=== PATIENT | female | born 1950 | race Caucasian/White ===

== ENCOUNTER → 2020-08-17 | Outpatient (CLI) | payer MEDICARE, OTHER ==
[2014-04-29 15:04] VITALS: BP 109/74
[~2020-08-17] MED LIST: ASPI325T8 PO; ATOR40TA PO; BUPIVACAINE MPF 0.5% 10 ML VIAL. IJ ONE; GABA-689 PO; GABA300C18 PO; Metoprolol Tartrate PO; OMEG1CAP6 PO; gabapentin; lisinopril
--- NOTE | 2020-08-17 16:43 | RAD ---
Examination: DIGITAL DIAGNOSTIC RT, US GUID NDL PLACE/ASPI/BX History: Post rt breast biopsy,clip placement / Comparison/Correlation: None Findings: Risks, benefits, and alternatives regarding right breast biopsy by ultrasound guidance were discussed with the patient and informed consent was obtained. Cleansing with ChloraPrep at the anticipated site of needle placement was performed. Sterile draping, sterile gel, and sterile probe cover is were utilized. Approximately 5 of 1 percent lidocaine was administered subcutaneously and along the expected course of the needle tracks. Oblique superoinferior approach was utilized. Scalpel incision was made. Introducer was placed. A 12-gauge core biopsy needle was utilized. 3 passes were made into the right suprahilar mass. Specimens placed in formalin there are . Biopsy clip marker was then placed via the introducer into the mass. Mediolateral and CC images of the right breast were then obtained. Biopsy clip marker is present within the 12 o'clock mass. No hematoma. Minimal soft tissue gas corresponding to postprocedure status. Scattered fibroglandular densities are present. Impression: Successful ultrasound-guided core biopsy of right 12:00 breast mass. Specimen sent to lab. Patient tolerated the procedure well without immediate complications. Electronically signed by: Brenton Parisi MD (08/17/2020 4:41 PM) [email or web address]
--- NOTE | 2020-08-18 19:11 | PATHOLOGY ---
[facility] Accession Number: [id number] . 01 Material submitted: . breast - RIGHT BREAST BIOPSY. Modifiers: right . 01 Clinical history: . RIGHT BREAST MASS . 02 Diagnosis: Breast tissue, right breast mass needle biopsy: - INVASIVE DUCTAL CARCINOMA, GRADE 2. SEE COMMENT. LBQ 08/18/2020 1129 Local . 02 Comment: Sections of the right breast mass needle biopsy reveal an invasive mammary carcinoma. The tumor shows evidence of tubule formation. Tumor cells are also focally present in infiltrating cords. The tumor is associated with a centrally dense sclerotic stroma. The tumor cells show moderate nuclear pleomorphism. There are a few mitotic figures present. The invasive carcinoma measures up to 1.3 cm in greatest dimension on the glass slide. There are no tumor associated calcifications. There is no lymphovascular tumor invasion. The case is also examined by Dr. Mott, who concurs with the diagnosis. . Breast prognostic studies will be obtained on block A3, the results of which will be reported separately. (JPM/db; 08/18/2020) . 02 Electronically signed: . Keith Elliott MD, Pathologist NPI- [id number] . 01 Gross description: . The specimen is received in formalin, labeled "Mayelin Cisneros", "right breast biopsy". Received are 3 needle cores of pale white-villalba breast tissue, ranging in length from 1.0 cm to 1.5 cm and are 0.1 cm in diameter. The specimen is entirely submitted in cassettes A1 to A3. Time removed is 1357, time in formalin is 1358, time out of formalin is 2340 all on 08-17.(SNA; 08/17/2020) NICK/LAXMI 08/17/2020 1834 Local . 02 Pathologist provided ICD-10: C50.911 . 02 CPT . 741998 Specimen Comment: Report sent to ,DR DEVLIN / DR AMOR Performed at: [address], [place] [id number] MD Alejandro Mott MD Phone: [phone] Performed at: [address] [id number] MD Keith Elliott MD Phone: [phone]
== END ==
LOC: US 12:22
PROVIDERS: ATTEND Nurse Practitioner Family
DX: N63.10 Unspecified lump in the right breast, unspecified quadrant (principal); C50.911 Malignant neoplasm of unspecified site of right female breast; I10 Essential (primary) hypertension; E78.00 Pure hypercholesterolemia, unspecified; K21.9 Gastro-esophageal reflux disease without esophagitis; F41.9 Anxiety disorder, unspecified; E66.9 Obesity, unspecified; Z87.891 Personal history of nicotine dependence; Z79.82 Long term (current) use of aspirin; Z79.899 Other long term (current) drug therapy; Z98.890 Other specified postprocedural states; Z86.73 Personal history of transient ischemic attack (TIA), and cerebral infarction without residual deficits; Z90.710 Acquired absence of both cervix and uterus; Z88.8 Allergy status to other drugs, medicaments and biological substances
CPT/HCPCS: 19083; 77065; 88305; 88361; C1713; J3490; 19081; 76942

== ENCOUNTER → 2020-09-23 | Outpatient (CLI) | payer MEDICARE ==
[2014-04-29 15:04] VITALS: BP 109/74
[~2020-09-23] MED LIST changes: +ALEN70TA3 PO; -BUPIVACAINE MPF 0.5% 10 ML VIAL. IJ ONE; +METF10007 PO; +OMEP40CA45 PO
== END ==
LOC: LAB 13:08
PROVIDERS: ATTEND Surgery
DX: Z01.812 Encounter for preprocedural laboratory examination (principal); Z20.828 Contact with and (suspected) exposure to other viral communicable diseases
CPT/HCPCS: U0003

== ENCOUNTER 2020-09-27 10:27 | Observation (INO) | payer MEDICARE ==
[2020-09-27] VITALS (8 sets, daily range): BP systolic 118–149; BP diastolic 54–77
[~2020-09-27] VITALS: Ht 157.5 cm; Wt 106.0 kg
[~2020-09-27 10:27] MED LIST changes: +ACETAMINOPHEN 500 MG TABLET PO PRN; -ALEN70TA3 PO; +BUPIVACAINE-EPI 0.25%-1:200000 MPF 30 ML VIAL. INJ ONE; +DEXAMETHASONE SOD PHOS 4 MG/ML VIAL ONE; +HYDROmorphone 2 MG/ML VIAL IV PRN; +IV RINGERS,LACTATED 1000ML 1,000 ML IV SCH; +LIDOCAINE 2% PF 5 ML VIAL. ONE; -METF10007 PO; -OMEP40CA45 PO; +ONDANSETRON PF 4 MG/2 ML VIAL. IV PRN; +ONDANSETRON PF 4 MG/2 ML VIAL. ONE; +PROCHLORPERAZINE 10 MG/2 ML VIAL. IV PRN; +PROPOFOL 10 MG/ML (20ML) VIAL. IV ONE; +SUCCINYLCHOLINE 200 MG/10 ML VIAL. ONE; +fentaNYL PF VIAL 100 MCG/2 ML VIAL IV PRN; +fentaNYL PF VIAL 100 MCG/2 ML VIAL ONE
[2020-09-27] MEDS ORDERED: ALEN70TA3 PO (11:19)
[2020-09-27] MEDS ORDERED: OMEP40CA45 PO (11:19)
[2020-09-27] MEDS ORDERED: METF10007 PO (11:20)
[2020-09-27] MEDS ORDERED: INSULIN LISPRO 100 UNIT/ML 3ML VIAL for OP,RR ONLY. SQ PRN (11:45)
[2020-09-27] MEDS ORDERED: ISOSULFAN BLUE 1% 50 MG/5 ML VIAL. SQ ONE (12:33)
[2020-09-27] MEDS ORDERED: SEVOFLURANE 61 TO 120 MINUTES. IH ONE (12:46)
[2020-09-27] MEDS ORDERED: fentaNYL PF VIAL 100 MCG/2 ML VIAL ONE ×2 (13:21→14:53)
--- NOTE | 2020-09-27 14:05 | PDOC4 ---
Operative Note Operative Note Date: September 272019 at 1358 Preoperative diagnosis: Right breast cancer Postoperative diagnosis: Same Procedure: Right mastectomy with sentinel lymph node biopsy Surgeon: Adis Specimen: Right breast and sentinel lymph node Dictation: Patient is a 70-year-old female who has biopsy-proven right breast cancer. Procedure of mastectomy with sentinel lymph node biopsy was explained to the patient detail risk benefits were also discussed including bleeding infection alternatives to this procedure also discussed with the patient who seemed to understand and gave both verbal and written consent to have the procedure performed. Patient was taken to the operating room placed in the supine position general anesthesia was initiated once patient was sleeping intubated her right breast chest were prepped and draped in usual sterile fashion using ChloraPrep. Area in the 4 quadrants of her nipple areolar complex was injected with 1-1/2 cc of Lymphazurin this was allowed to percolate for 10 minutes. Using the C-Trak area in the right axilla was marked there was quite a bit of uptake incision was made 15 blade scalpel is carried down through the subcutaneous tissues electrocautery right hemostasis down to an area where a lymph node was encountered this was removed and checked with the C-Trak which had over 2000 count. This was sent for the sentinel lymph node. Attention was then turned to the mastectomy elliptical incision around the nipple areolar complex was made with a 10 blade scalpel is carried down through the subcutaneous tissue using electrocautery to excise the breast tissue off of the flaps posteriorly to just below the inferior mammary fold proximally to the sternum laterally to the latissimus dorsi and superiorly to the clavicle is taken off with electrocautery and sent for pathology with the markings being a long stitch in the lateral aspect of the breast tissue a short stitch at the superior and 2 stitches on the deep tissue margin. Hemostasis was controlled with electrocautery and the wound was closed in 2 layers the deep layer of single interrupted 3-0 Vicryl's and the skin was reapproximated 4-0 subcuticular Monocryl prior to closing the skin a drain was placed in the deep subcutaneous layer on the chest wall through separate stab incision this was sewn into place with a 2-0 silk stitch. The axillary incision was closed in similar fashion with 2 layers the deep layer of single interrupted 3-0 Vicryl and the skin was reapproximated for subcuticular Monocryl Mastisol Steri-Strips 4 x 4's Medipore tape were applied as dressings. Patient was awakened and extubated operating room taken to recovery in stable condition all sponge instrument needle counts listed as correct estimated blood loss 50 mL ROSE ABRAHAM MD Sep 27, 2020 14:05
[2020-09-27] MEDS ORDERED: IV DEXTROSE 5%-LACT RINGERS 1,000 ML IV SCH (14:15)
[2020-09-27] MEDS ORDERED: ONDANSETRON PF 4 MG/2 ML VIAL. IV PRN (14:15)
[2020-09-27] MEDS ORDERED: 0.9 % SODIUM CHLORIDE 10 ML DISP.SYRIN. IV PRN (14:15)
[2020-09-27] MEDS ORDERED: MORPHINE SULFATE 2 MG/ML VIAL. IV PRN (14:15)
[2020-09-27] MEDS ORDERED: oxyCODONE/APAP 5/325 1 TAB TABLET PO PRN ×2 (14:15)
[2020-09-27] MEDS: fentaNYL PF VIAL 100 MCG/2 ML VIAL IV PRN ×2 (14:56→15:02)
[2020-09-27] MEDS ORDERED: MORPHINE SULFATE 2 MG/ML VIAL. ONE (15:16)
[2020-09-27] MEDS: MORPHINE SULFATE 2 MG/ML VIAL. IV PRN ×2 (15:20→15:32)
--- NOTE | 2020-09-27 16:00 | NUR ---
Arrived to unit by bed from PACU. Awake and c/o being hungry. Right chest dressing is d/i with VERNELL drain intact. Right arm elevated on pillow. IVF's intact and infusing. ODELL's on bilaterally. Oriented to room and controls. Side rails up with call light in reach. Daughter at bedside. Cont. monitor.
--- NOTE | 2020-09-27 16:14 | RAD ---
Examination: SENTINEL NODE INJECTION History: Reason: RT BREAST CA / Spl. Instructions: / History: Comparison/Correlation: None Findings: 999 uCi of technetium 99m lymphoseek was administered intradermally at the right breast 12:00 region 1 cm from the areola after cleansing with Betadine swabs. No images acquired. Impression: Successful intradermal administration of radiotracer. Electronically signed by: Brenton Parisi MD (09/27/2020 4:11 PM) [id number]
[2020-09-27] MEDS: KETOROLAC 15 MG/ML VIAL. IV SCH (17:24)
[2020-09-27] MEDS: cefOXitin SODIUM IV Push 1 GM VIAL. IVP SCH (21:24)
--- NOTE | 2020-09-27 22:20 | NUR ---
"I feel a seizure coming on." States she "doesn't feel right." No aura. No tremors noted. " I swear that chocolate and mashed potatoes are the only cure for an oncoming seizure." FSBS 252. Daughter brought the patient chocolate bars and a fritter. States she also has a headache, refused offered Percocet. Metformin taken. A room fan was offered to the patient, it was refused because the patient "doesn't want to catch a cold."
[2020-09-28 03:00] VITALS: BP 120/65
[2020-09-28] MEDS: cefOXitin SODIUM IV Push 1 GM VIAL. IVP SCH (04:25)
[2020-09-28] MEDS: KETOROLAC 15 MG/ML VIAL. IV SCH ×2 (06:05)
[2020-09-28 06:26] VITALS: BP 135/78
[2020-09-28 06:43] VITALS: BP 131/86
[2020-09-28] MEDS ORDERED: PANTOPRAZOLE 40 MG TABLET.DR. PO SCH (07:30)
--- NOTE | 2020-09-28 07:40 | NUR ---
Took on Omeprazole this am, instructed not to take own medication without notifying the staff, agreed
--- NOTE | 2020-09-28 07:50 | NUR ---
Dr. Arceo here to assess, ok for patient to take own medication per Dr. Arceo.
--- NOTE | 2020-09-28 07:53 | PDOC ---
SURGICAL PROGRESS NOTE DATE: 09/28/20 TIME: 07:52 Subjective Patient states she is doing quite well minimal pain well controlled with pain medication Vital Signs Vital Signs Date Time Temp Pulse Resp B/P (MAP) Pulse Ox O2 Delivery O2 Flow Rate FiO2 09/28/20 06:43 99.4 90 20 131/86 (101) 96 BiPAP/CPAP 99.4 09/27/20 15:02 10.0 I&O Intake and Output 09/28/20 07:00 Intake Total 2150 ml Output Total 420 ml Balance 1730 ml Intake Oral 1400 ml IV Total 750 ml Output Urine Total 350 ml Drainage Total 20 ml Estimated Blood Loss 50 ml # Voids 3 PATIENT HAS A JOHN: No General: Alert, Oriented X3, Cooperative, mild distress Abdomen: Normal bowel sounds, Soft, Other (Wounds clean dry and intact VERNELL drain with serosanguineous output) Labs Laboratory Tests Test 09/27/20 11:22 09/27/20 14:46 09/27/20 22:57 09/28/20 06:15 Glucose (Fingerstick) 133 mg/dL (70-99) 136 mg/dL (70-99) 252 mg/dL (70-99) 137 mg/dL (70-99) Laboratory Tests Test 09/27/20 11:22 09/27/20 14:46 09/27/20 22:57 09/28/20 06:15 Glucose (Fingerstick) 133 mg/dL (70-99) 136 mg/dL (70-99) 252 mg/dL (70-99) 137 mg/dL (70-99) Assessment/Plan Status post right mastectomy with sentinel lymph node biopsy doing quite well plan for discharge Justicifation of Admission Dx: Justifications for Admission: Justification of Admission Dx: N/A ROSE ABRAHAM MD Sep 28, 2020 07:53
--- NOTE | 2020-09-28 07:55 | DISCH ---
DISCHARGE INSTRUCTIONS Condition on Discharge Condition on Discharge: Stable Activity After Discharge Activity Instructions for Disc: Activity as tolerated, Avoid exertion Weight Bearing Status after Di: As tolerated Diet after Discharge Diet after Discharge: Cardiac Wound Incision Care Other wound/incision instructi: May shower after drain is removed Contacting the DRShaquille after DC Call your doctor for: If your condition worsens Follow-Up Follow up with: Dr. Abraham in 1 week ROSE ABRAHAM MD Sep 28, 2020 07:55
--- NOTE | 2020-09-28 07:57 | PDOC3 ---
Discharge Summary Visit Information Date of Admission: Sep 27, 2020 Date of Discharge: Sep 28, 2020 Admitting Diagnosis Comment: Right breast cancer Final Diagnosis Right breast cancer Brief Hospital Course Allergies Allergies Coded Allergies Type Severity Reaction Last Updated Verified lidocaine Adverse Reaction Intermediate 04/29/14 No Vital Signs Vital Signs Date Time Temp Pulse Resp B/P (MAP) Pulse Ox O2 Delivery O2 Flow Rate FiO2 09/28/20 06:43 99.4 90 20 131/86 (101) 96 BiPAP/CPAP 99.4 09/27/20 15:02 10.0 Lab Results Laboratory Tests Test 09/27/20 11:22 09/27/20 14:46 09/27/20 22:57 09/28/20 06:15 Glucose (Fingerstick) 133 mg/dL (70-99) 136 mg/dL (70-99) 252 mg/dL (70-99) 137 mg/dL (70-99) Laboratory Tests Test 09/27/20 11:22 09/27/20 14:46 09/27/20 22:57 09/28/20 06:15 Glucose (Fingerstick) 133 mg/dL (70-99) 136 mg/dL (70-99) 252 mg/dL (70-99) 137 mg/dL (70-99) Brief Hospital Course Ms. Cisneros is a 70 old female was mated to the hospital to undergo a right mastectomy with sentinel node biopsy for which she did on September 27, 2020 without difficulties postoperative course has been quite uneventful she is tolerating regular diet pain is well controlled be discharged home in stable condition Assessment Assessment Status post right mastectomy with sentinel lymph node biopsy Discharge Information Condition at Discharge: Stable Follow Up: Weeks Disposition/Orders: D/C to Home Scheduled Alendronate Sodium (Fosamax) 70 Mg Tablet, 70 MG PO WEEKLY for bones, (Reported) Entered as Reported by: NENO HUDSON on 09/27/201118 Last Taken: Unknown Dose on 09/24/20 Last Action: New Order on 09/27/201118 by NENO HUDSON Gabapentin (Gabapentin ) 300 Mg Capsule, 300 MG PO BID, (Reported) Entered as Reported by: Martín Nix on 02/06/14 0053 Last Taken: Unknown Dose on 09/27/20 0900 Last Action: Reviewed on 09/27/201118 by NENO HANKS Metformin Hcl (Metformin Hcl) 1,000 Mg Tablet, 1,000 MG PO BIDWMEALS for diabetes, (Reported) Entered as Reported by: NENO HUDSON on 09/27/20 1120 Last Taken: Unknown Dose on 09/26/20 Last Action: Converted on 09/27/202224 by ELO SMITH Omeprazole (Omeprazole) 40 Mg Capsule.dr, 1 CAP PO DAILY for gerd, #30 Ref 3 (Reported) Entered as Reported by: NENO HUDSON on 09/27/20 1119 Last Taken: Unknown Dose on 09/27/20 0830 Last Action: Converted on 09/27/202224 by ELO SMITH Patient Instructions Patient Instructions Patient instructed to keep track of VERNELL drainage and to follow-up in clinic in 1 week to have drain removed Justicifation of Admission Dx: Justifications for Admission: Justification of Admission Dx: N/A ROSE ABRAHAM MD Sep 28, 2020 07:57
[2020-09-28] MEDS ORDERED: metFORMIN 500 MG TABLET PO SCH (08:00)
--- NOTE | 2020-09-28 09:15 | NUR ---
Dressing changed to incision, no drainage noted, steri strips in place, VERNELL drain to suction, instructed on stripping & emptying drain, questions answered
--- NOTE | 2020-09-28 10:22 | NUR ---
Discharge instructions given with follow up to MD in 1 week, supplies given for VERNELL drain emptying, see instruction sheet for details, awaiting transportation home
[2020-09-28 10:42] VITALS: BP 144/78
--- NOTE | 2020-09-28 12:26 | NUR ---
Discharged to home accompanied by dtr, belongings taken with her
--- NOTE | 2020-09-30 18:10 | PATHOLOGY ---
[facility] Accession Number: [id number] . 01 Material submitted: . PART A: lymph node - SENTINEL LYMPH NODE #1, COUNT 2000. Modifiers: 1 PART B: breast - RIGHT BREAST, LONG STITCH LATERAL, SHORT STITCH SUPERIOR, DOUBLE DEEP. Modifiers: right . 01 Clinician provided ICD-10: C50.911 . 01 Clinical history: . RIGHT BREAST CANCER . 02 Diagnosis: A. Lymph node, right sentinel lymph node #1: - Rare isolated tumor cells identified. . B. Breast, right mastectomy: - INVASIVE DUCTAL CARCINOMA, HISTOLOGIC GRADE 2, FORMING A STELLATE, CENTRALLY SCLEROTIC TUMOR MASS AT 6:00 MEASURING 2.6 CM IN GREATEST DIMENSIONS. - DUCTAL CARCINOMA IN SITU, INTERMEDIATE GRADE, SOLID TYPE, FOCAL. - Possible focus of lymphovascular tumor invasion identified. - Invasive carcinoma is approximately 5 mm from the closest inferior margin of resection. - Previous biopsy site changes. - Fibrocystic changes, focal. (JPM:naresh 09/30/2020) . . SURGICAL PATHOLOGY CANCER CASE SUMMARY Protocol posting date: November 2019 . INVASIVE CARCINOMA OF THE BREAST: Resection Procedure ___ Total mastectomy (including nipple-sparing and skin-sparing mastectomy) Specimen Laterality ___ Right + Tumor Site + ___ Clock position: 6 o'clock Tumor Size ___ Greatest dimension of largest invasive focus >1 mm: 26 mm Histologic Type ___ Invasive carcinoma of no special type (ductal) Histologic Grade (Fransisco Histologic Score) Glandular (Acinar)/Tubular Differentiation ___ Score 2 (10% to 75% of tumor area forming glandular/tubular structures) Nuclear Pleomorphism ___ Score 2 (cells larger than normal with open vesicular nuclei, visible nucleoli, and moderate variability in both size and shape) Mitotic Rate ___ Score 2 Overall Grade ___ Grade 2 (scores of 6 or 7) + Tumor Focality + ___ Single focus of invasive carcinoma Ductal Carcinoma In Situ (DCIS) ___ Present + ___ Negative for extensive intraductal component (EIC) + Architectural Patterns + ___ Solid + Nuclear Grade + ___ Grade II (intermediate) + Necrosis + ___ Not identified + Lobular Carcinoma In Situ (LCIS) + ___ Not identified Margins Invasive Carcinoma Margins ___ Uninvolved by invasive carcinoma Distance from closest margin: 5 mm Specify closest margin: Inferior margin DCIS Margins ___ Uninvolved by DCIS Distance from closest margin: 5 mm Specify closest margin: Inferior margin Regional Lymph Nodes ___ Involved by tumor cells ___ Number of lymph nodes with isolated tumor cells: 1 . ___ Total Number of Lymph Nodes Examined: 1 ___ Number of [place] Nodes Examined: 1 + Lymphovascular Invasion + ___ Focus suspicious for lymphovascular tumor invasion + Dermal Lymphovascular Invasion + ___ Not identified . Pathologic Stage Classification (pTNM, AJCC 8th Edition) Primary Tumor (pT) ___ pT2: Tumor >20 mm but < or equal to 50 mm in greatest dimension Regional Lymph Nodes (pN) ___ pN0 (i+): ITCs only (malignant cell clusters no larger than 0.2 mm) in regional lymph nodes + Additional Pathologic Findings + Specify: See diagnoses + Microcalcifications + ___ Present in invasive carcinoma (JPM/db; 09/30/2020) [facility] 09/30/2020 1736 Local . 02 Comment: Sections of the sentinel lymph node are examined at multiple levels. Immunoperoxidase stains for AE1/AE3 are also obtained on the sentinel lymph node and yield the following results: AE1/AE3 (A1): Rare isolated tumor cells identified. AE1/AE3 (A2): Negative for tumor cells. . Thus the sentinel lymph node contains rare isolated tumor cells. (JPM:[facility] 09/30/2020) . Special stains performed: AE1/AE3 on A1 and A2. . 02 Electronically signed: . Keith Elliott MD, Pathologist NPI- [id number] . 01 Gross description: . . A. The specimen is received in formalin, labeled "Mayelin Cisneros, sentinel lymph node 1 1999" and consists of a segment of yellow lobulated tissue measuring 2.0 x 1.5 x 1.4 cm. Present within is a lymph node showing pink-villalba cut surfaces which is entirely submitted in A1-A2. . B. The specimen is received in formalin, labeled "Mayelin Cisneros, right breast" and consists of an 810 g mastectomy specimen oriented with a short suture superior, long lateral, and double deep. The breast tissue measures 25.2 cm L-M, 16.7 cm S-I, 5.0 cm A-P with an anterior pink skin ellipse measuring 17.3 x 6.5 cm. The nipple areolar complex is everted measuring 6.5 x 6.5 cm with central crusting on the nipple. Superior is inked blue, inferior green, and deep black. It is sectioned revealing a stellate white-pink mass at approximately 6:00 measuring 2.6 x 2.5 cm that is to margins as follows: Approaches inferior (0.1 cm or less), 3.9 cm superior, 2.5 cm posterior, and 1.0 cm nipple. Present within the mass is a plastic bead and previous biopsy changes. The uninvolved parenchyma is yellow orange lobulated with no additional mass lesions and approximately 5% fibrous tissue. [employer] sections are submitted as follows: . B1: Nipple B2: Posterior margin B3-B4: Mass to inferior B5: Additional mass B6 upper outer quadrant B7: Lower outer quadrant B8: Upper inner quadrant B9: Lower inner quadrant . The specimen was collected on 09/27/2020 with no time in formalin. The time out of formalin is 11:50 PM on 09/28/2020. (SDY; 09/28/2020) SYU/SYU 09/28/2020 1534 Local . 02 Pathologist provided ICD-10: C50.911, D05.12, D49.89, N60.11 . 02 CPT . 278253, 140466, P82324 Specimen Comment: Report sent to / DR AMOR Performed at: 01 [facility] [address], [place] [id number] MD Alejandro Mott MD Phone: [phone] Performed at: 02 [facility] [address] [place], [place] [id number] MD Keith Elliott MD Phone: [phone]
== END 2020-09-28 12:34 | disposition home or self-care (01) ==
LOC: NM 10:27 → 4 SOUTHEST 14:03 → UNDOADMOB 14:43
PROVIDERS: ADMIT Surgery; ATTEND Surgery
DX: C50.911 Malignant neoplasm of unspecified site of right female breast (principal); Z79.899 Other long term (current) drug therapy
CPT/HCPCS: 19303; 38525; 38792; 82962; 96374; 96375; 96376; A9520; G0378; G0379; J0330; J0690; J0694; J1100; J1885; J2270; J2704; J3010; J7120; Q9968; J2405

== ENCOUNTER → 2020-10-10 | Outpatient (CLI) | payer MEDICARE ==
[2020-09-28 10:42] VITALS: BP 144/78
[~2020-10-10] MED LIST changes: -ACETAMINOPHEN 500 MG TABLET PO PRN; +ALEN70TA3 PO; -BUPIVACAINE-EPI 0.25%-1:200000 MPF 30 ML VIAL. INJ ONE; -DEXAMETHASONE SOD PHOS 4 MG/ML VIAL ONE; -HYDROmorphone 2 MG/ML VIAL IV PRN; -IV RINGERS,LACTATED 1000ML 1,000 ML IV SCH; -LIDOCAINE 2% PF 5 ML VIAL. ONE; +METF10007 PO; +OMEP40CA45 PO; -ONDANSETRON PF 4 MG/2 ML VIAL. IV PRN; -ONDANSETRON PF 4 MG/2 ML VIAL. ONE; -PROCHLORPERAZINE 10 MG/2 ML VIAL. IV PRN; -PROPOFOL 10 MG/ML (20ML) VIAL. IV ONE; -SUCCINYLCHOLINE 200 MG/10 ML VIAL. ONE; -fentaNYL PF VIAL 100 MCG/2 ML VIAL IV PRN; -fentaNYL PF VIAL 100 MCG/2 ML VIAL ONE
[2020-10-10 11:42] LABS: CALCIUM 9.5 mg/dL (8.5-10.1); CREATININE 0.8 mg/dL (0.6-1.0); GFR 71.3; POTASSIUM 4.1 mmol/L (3.5-5.1)
[2020-10-10 11:45] LABS: BASO % 1 % (0-3); EOS # 0.2 x10^3/uL (0.0-0.7); EOS % 4 % (0-3); HEMATOCRIT 37.1 % (36.0-47.0); HEMOGLOBIN 12.6 g/dL (12.0-15.5); LYMPH # 1.5 x10^3/uL (1.0-4.8); LYMPH % 33 % (24-48); MEAN CORPUSCULAR HEMOGLOBIN 31 pg (25-35); MEAN CORPUSCULAR HGB CONC 34 g/dL (31-37); MEAN CORPUSCULAR VOLUME 91 fL (79-100); MONO # 0.4 x10^3/uL (0.0-1.1); MONO % 8 % (0-9); NEUT # 2.5 x10^3/uL (1.8-7.7); NEUT % 54 % (31-73); PLATELET COUNT 233 x10^3/uL (140-400); RED CELL DISTRIBUTION WIDTH 14.4 % (11.5-14.5); WHITE BLOOD COUNT 4.7 x10^3/uL (4.0-11.0)
[2020-10-10 11:48] LABS: ALBUMIN 3.5 g/dL (3.4-5.0); TOTAL BILIRUBIN 0.3 mg/dL (0.2-1.0)
== END ==
LOC: ONCLAB 08:14
PROVIDERS: ATTEND Internal Medicine Hematology & Oncology
DX: C50.111 Malignant neoplasm of central portion of right female breast (principal)
CPT/HCPCS: 36415; 80053; 85025

== ENCOUNTER → 2021-02-14 | Outpatient (CLI) | payer MEDICARE ==
--- NOTE | 2021-02-14 15:42 | RAD ---
PROCEDURE: MG DIGITAL BILAT DIAGNOSTIC MAMMO WITH ESTELLE, US BREAST RT HISTORY: The patient is 70 years old and is seen for Reason: Lump rt breast / Spl. Instructions: / H istory: . COMPARISON: August 17, 2020 and August 02, 2020 TECHNIQUE: CC and MLO views of both breasts were obtained. Images were processed by the [employer] computer-aided detection system. Targeted right breast ultrasound. DENSITY: There are scattered fibroglandular densities. FINDINGS: Right mammogram: Interval postoperative changes right breast. Large mass within the right breast lump ectomy site measures 4.1 x 1.1 cm. There are additional ill-defined focal asymmetry is adjacent to th e mass, likely fat necrosis. No suspicious microcalcifications. Right breast ultrasound: Complicated fluid collection within the right breast 6:00 position correspon ding with mammographic finding. There are thick septations within the lesion. Heterogeneous predomina nt hyperechoic lesion adjacent to the cystic lesion measures 1.6 x 0.7 cm, may represent fat necrosis . Left breast mammogram: No suspicious microcalcifications, mass or architectural distortion. Benign-ap pearing calcifications IMPRESSION: Interval postoperative changes right breast with large complicated cystic lesion and adjacent hyperec hoic lesion. Findings may represent postoperative hematoma/seroma with adjacent fat necrosis. Recomme nd 6 month mammogram and ultrasound follow-up. Recommend annual screening mammograms per [place] [employer] guidelines. Patient will be due in six months. BI-RADS category 3 Probably benign Our clinic nurse has been instructed to assist with communicating findings and recommendations to the patient's referring physician and in scheduling follow-up. Patient entered into a reminder system for annual screening mammogram. Electronically signed by: Patel Burgess DO (02/14/2021 3:39 PM) [email or web address]
== END ==
LOC: MAMMO 13:49
PROVIDERS: ATTEND Internal Medicine Hematology & Oncology
DX: R92.1 Mammographic calcification found on diagnostic imaging of breast (principal)
CPT/HCPCS: 76641; 77066; G0279; 77062

== ENCOUNTER → 2021-08-28 | Outpatient (CLI) | payer MEDICARE ==
[~2021-08-28] MED LIST changes: +CEPH500C PO; +HYDR-2761 PO; -OMEP40CA45 PO; +OMEP40CA7 PO
[2021-08-28 13:18] LABS: BASO % 1 % (0-3); EOS # 0.1 x10^3/uL (0.0-0.7); EOS % 2 % (0-3); HEMATOCRIT 37.6 % (36.0-47.0); HEMOGLOBIN 12.3 g/dL (12.0-15.5); LYMPH # 1.2 x10^3/uL (1.0-4.8); LYMPH % 26 % (24-48); MEAN CORPUSCULAR HEMOGLOBIN 29 pg (25-35); MEAN CORPUSCULAR HGB CONC 33 g/dL (31-37); MEAN CORPUSCULAR VOLUME 88 fL (79-100); MONO # 0.4 x10^3/uL (0.0-1.1); MONO % 8 % (0-9); NEUT % 64 % (31-73); PLATELET COUNT 310 x10^3/uL (140-400); RED BLOOD COUNT 4.25 x10^6/uL (3.50-5.40); RED CELL DISTRIBUTION WIDTH 15.8 % (11.5-14.5); WHITE BLOOD COUNT 4.7 x10^3/uL (4.0-11.0)
[2021-08-28 13:23] LABS: CALCIUM 9.2 mg/dL (8.5-10.1); POTASSIUM 4.2 mmol/L (3.5-5.1)
[2021-08-28 13:29] LABS: ALBUMIN 3.3 g/dL (3.4-5.0); ALBUMIN/GLOBULIN RATIO 0.8 (1.0-1.7); TOTAL BILIRUBIN 0.3 mg/dL (0.2-1.0); TOTAL PROTEIN 7.4 g/dL (6.4-8.2)
== END ==
LOC: ONCLAB 12:24
PROVIDERS: ATTEND Physician Assistant
DX: C50.111 Malignant neoplasm of central portion of right female breast (principal); E83.51 Hypocalcemia; M89.9 Disorder of bone, unspecified
CPT/HCPCS: 36415; 80053; 82306; 83615; 85025; 86300

== ENCOUNTER → 2021-09-18 | Outpatient (CLI) | payer MEDICARE ==
--- NOTE | 2021-09-18 11:47 | RAD ---
EXAMINATION: US BREAST RT, MG DIAGNOSTICUNILAT MAMMO CLINICAL HISTORY: Follow-up right breast mass TECHNIQUE: Digital craniocaudal and mediolateral oblique spot compression views and true lateral view of the right breast obtained. Targeted right breast ultrasound also performed. COMPARISON: None BREAST COMPOSITION: There are scattered areas of fibroglandular density. FINDINGS: RIGHT BREAST DIAGNOSTIC MAMMOGRAM: Redemonstration of large hyperdense mass with surrounding asymmetries, essentially unchanged from arely or study. RIGHT BREAST ULTRASOUND: Redemonstration of large heterogeneous collection at 6:00 position measuring 4.0 x 4.1 x 3.2 cm, prev iously 4.8 x 4.5 x 3.9 cm. Fewer and smaller cystic spaces visualized in the collection on this exam. Previously noted small adjacent lesion on the prior ultrasound is not appreciated on this exam. IMPRESSION: Smaller heterogeneous collection with heterogeneous cystic spaces in the right breast as described, p ossibly an evolving/resolving postoperative hematoma or seroma. Recommend 6 month follow-up bilateral mammogram to serve as diagnostic follow-up on the right and annual screening on the left as well as targeted right breast ultrasound. BI-RADS ASSESSMENT: Category 3: Probably Benign RECOMMENDATION: Bilateral mammogram and targeted right breast ultrasound in 6 months. PQRS compliance statement - Patient information was entered into a reminder system with a target due date for the next mammogram. "Our facility is accredited by the [employer] Mammography Program." Electronically signed by: Junior Guerra DO (09/18/2021 11:44 AM) [email or web address]
== END ==
LOC: US 09:30
PROVIDERS: ATTEND Internal Medicine Hematology & Oncology
DX: N63.13 Unspecified lump in the right breast, lower outer quadrant (principal)
CPT/HCPCS: 76641; 77065

== ENCOUNTER 2021-09-21 18:24 | Emergency (ER) | payer MEDICARE ==
[~2021-09-21] VITALS: Ht 162.6 cm; Wt 79.5 kg
[~2021-09-21 18:24] MED LIST changes: -CEPH500C PO; -HYDR-2761 PO
--- NOTE | 2021-09-21 21:17 | PHYS DOC ---
Past Medical History Past Medical History: GERD, Hypertension, NH, Migraines, Seizure Additional Past Medical Histor: H. HERNIA, STRESS, BREAST CANCER, GALLBLADDER PROBLEMS Past Surgical History: Hysterectomy Additional Past Surgical Histo: MASTECTOMY Smoking Status: Former Smoker Alcohol Use: None Drug Use: None General Adult EDM: Chief Complaint: GI PROBLEM HPI: HPI: Patient is a 71-year-old female who presents to the emergency department for upper abdominal pain. Patient rates her pain 9 out of 10. Is worse with deep breathing. Patient states "it feels like gas". Patient states that she recently had a gallbladder attack. Patient is scheduled for an ultrasound of her gallbladder tomorrow. Patient denies any nausea, vomiting, diarrhea, urinary symptoms, fever or blood in her stools. Last bowel movement was 3 days ago. Review of Systems: Review of Systems: Constitutional: See HPI GI: See HPI : See HPI Heart Score: C/O Chest Pain: N/A Risk Factors: Risk Factors: DM, Current or recent (<one month) smoker, HTN, HLP, family history of CAD, obesity. Risk Scores: Score 0 - 3: 2.5% MACE over next 6 weeks - Discharge Home Score 4 - 6: 20.3% MACE over next 6 weeks - Admit for Clinical Observation Score 7 - 10: 72.7% MACE over next 6 weeks - Early Invasive Strategies Allergies: Allergies: Allergies Coded Allergies Type Severity Reaction Last Updated Verified lidocaine Adverse Reaction Intermediate 04/29/14 No Physical Exam: PE: Constitutional: Well developed, well nourished, no acute distress, non-toxic appearance. [] HENT: Normocephalic, atraumatic, bilateral external ears normal, oropharynx moist, no oral exudates, nose normal. [] Eyes: PERRL, EOMI, conjunctiva normal, no discharge. [] Neck: Normal range of motion, no stridor Cardiovascular:Heart rate bradycardic rhythm, no murmur [] Lungs & Thorax: Bilateral breath sounds clear to auscultation [] Abdomen: Bowel sounds normal, soft, pain with palpation to right upper quadrant, epigastric region, left lower quadrant, no rebound tenderness, no rigidity or guarding,, no masses, no pulsatile masses. [] Skin: Warm, dry, no erythema, no rash. [] Back: No tenderness, normal range of motion Extremities: No tenderness, no cyanosis, no clubbing, ROM intact, no edema. [] Neurologic: Alert and oriented X 3, normal motor function, normal sensory function, no focal deficits noted. [] Psychologic: Affect normal, judgement normal, mood normal. [] Current Patient Data: Labs: Laboratory Tests Test 09/21/21 21:30 09/21/21 22:44 White Blood Count 10.3 x10^3/uL Red Blood Count 4.01 x10^6/uL Hemoglobin 11.5 g/dL Hematocrit 35.1 % Mean Corpuscular Volume 88 fL Mean Corpuscular Hemoglobin 29 pg Mean Corpuscular Hemoglobin Concent 33 g/dL Red Cell Distribution Width 15.0 % Platelet Count 289 x10^3/uL Neutrophils (%) (Auto) 77 % Lymphocytes (%) (Auto) 15 % Monocytes (%) (Auto) 7 % Eosinophils (%) (Auto) 1 % Basophils (%) (Auto) 1 % Neutrophils # (Auto) 7.9 x10^3/uL Lymphocytes # (Auto) 1.5 x10^3/uL Monocytes # (Auto) 0.7 x10^3/uL Eosinophils # (Auto) 0.1 x10^3/uL Basophils # (Auto) 0.1 x10^3/uL Sodium Level 140 mmol/L Potassium Level 3.8 mmol/L Chloride Level 101 mmol/L Carbon Dioxide Level 32 mmol/L Anion Gap 7 Blood Urea Nitrogen 6 mg/dL Creatinine 1.2 mg/dL Estimated GFR (Cockcroft-Gault) 44.5 BUN/Creatinine Ratio 5 Glucose Level 142 mg/dL Calcium Level 8.8 mg/dL Total Bilirubin 0.3 mg/dL Aspartate Amino Transf (AST/SGOT) 27 U/L Alanine Aminotransferase (ALT/SGPT) 35 U/L Alkaline Phosphatase 100 U/L Troponin I High Sensitivity 24 ng/L Total Protein 6.9 g/dL Albumin 2.6 g/dL Albumin/Globulin Ratio 0.6 Lipase 75 U/L Urine Color Yellow Urine Clarity Clear Urine pH 6.0 Urine Specific [place] 1.010 Urine Protein Negative mg/dL Urine Glucose (UA) Negative mg/dL Urine Ketones (Stick) Negative mg/dL Urine Blood Moderate Urine Nitrite Negative Urine Bilirubin Negative Urine Urobilinogen Dipstick 0.2 mg/dL Urine Leukocyte Esterase Moderate Urine RBC 1-2 /HPF Urine WBC 11-20 /HPF Urine Squamous Epithelial Cells Few /LPF Urine Bacteria 0 /HPF Current Medications Medications (Trade) Dose Ordered Sig/Evelyn Route PRN Reason Start Time Stop Time Status Last Admin Dose Admin Sodium Chloride 1,000 ml @ 1,000 mls/hr Q1H IV 09/21/21 22:00 09/21/21 22:59 DC 09/21/21 21:38 Fentanyl Citrate (Fentanyl 2ml Vial) 50 mcg 1X ONCE IVP 09/21/21 22:00 09/21/21 22:01 DC 09/21/21 21:38 Ondansetron HCl (Zofran) 4 mg 1X ONCE IVP 09/21/21 22:00 09/21/21 22:01 DC 09/21/21 21:38 Fentanyl Citrate (Fentanyl 2ml Vial) 50 mcg 1X ONCE IVP 09/21/21 23:30 09/21/21 23:31 Cephalexin HCl (Keflex) 500 mg 1X ONCE PO 09/21/21 23:30 09/21/21 23:31 Vital Signs: Vital Signs Date Time Temp Pulse Resp B/P (MAP) Pulse Ox O2 Delivery O2 Flow Rate FiO2 09/21/21 20:13 99.6 61 20 118/82 (94) 97 Room Air 99.6 EKG: EKG: EKG performed by ER staff at 2102 shows sinus rhythm with PACs, heart rate of 61, QTc of 390, no STEMI read by Dr. Perez at 2102 [] Radiology/Procedures: Radiology/Procedures: []PROCEDURE: CT ABDOMEN PELVIS WO CONTRAST PQRS Compliance Statement: One or more of the following individualized dose reduction techniques were utilized for this examination: 1. Automated exposure control 2. Adjustment of the mA and/or kV according to patient size 3. Use of iterative reconstruction technique CT ABDOMEN+PELVIS WO Clinical Indication: Reason: abd pain / Comparison: None. Technique: Helical CT imaging of the abdomen and pelvis is performed without IV or oral contrast. Findings: Evaluation of solid organs and bowel is limited without oral and IV contrast, decreasing sensitivity for detection of pathology. Minimal atelectasis or scarring in the lung bases. There is trace left pleural effusion. There may be negligible right pleural effusion. Calcific aortic valve stenosis. The cardiac size is normal. The liver, gallbladder, pancreas, adrenal glands, abdominal aorta caliber, and kidneys are normal. There is induration surrounding the upper lateral spleen. There is subtle geographic hypoattenuation in this portion of the spleen measuring approximately 8.9 x 4.5 x 5.2 cm. Stomach is unremarkable. There is no dilated small bowel. Appendix is not identified, no secondary signs of appendicitis. There is scattered stool in the colon. No colon wall thickening is identified. No abdominal adenopathy or free fluid. The urinary bladder is normal. Hysterectomy. There is trace pelvic free fluid. No acute bone abnormality. IMPRESSION: 1. There is a geographic wedge-shaped area of hypoattenuation in the lateral and superior spleen. There is induration surrounding this portion of the spleen. Findings are suspicious for splenic infarct. 2. Trace pelvic free fluid. 3. Trace left pleural effusion. Electronically signed by: Julio César Pack MD (09/21/2021 10:31 PM) [facility] DICTATED and SIGNED BY: JULIO CÉSAR PACK MD DATE: 09/21/21 [id number] 0 Course & Med Decision Making: Course & Med Decision Making Pertinent Labs and Imaging studies reviewed. (See chart for details) [] Patient presents to the emergency department for upper abdominal pain. Work- up in the ER consisted of blood work, CT imaging of abdomen and pelvis. Patient treated with IV fluids, pain medication and nausea medication. Patient's vital signs are stable and she is afebrile. Patient's blood work is unremarkable. Patient CT scan of her abdomen and pelvis shows possible splenic infarct. I discussed these findings with Dr. Arceo general surgery at [facility] and he stated that it is symptomatic and pain management and a splenic infarct does not require any surgical treatment. Urinalysis does show urinary tract infection and patient will be treated with an antibiotic and given her first dose in the ER. I discussed possible admission for intractable abdominal pain with patient and she reported that she would like to go home. She states that she has an appointment in the morning. Patient was given a copy of her print out of her CT scan of her abdomen and pelvis to take with her to her appointment tomorrow. I discussed with patient all findings and diagnostic testing as well as the need to follow-up with PCP for further evaluation and treatment or return to the ER if any new or worsening symptoms. Strict return precautions were also discussed at length. Patient voiced understanding and agreement with the plan. Patient is hemodynamically stable at the time of disposition. Dragon Disclaimer: Eloy Disclaimer: This electronic medical record was generated, in whole or in part, using a voice recognition dictation system. Departure Departure Impression: Primary Impression: Abdominal pain Qualified Codes: R10.11 - Right upper quadrant pain Disposition: HOME / SELF CARE / HOMELESS Condition: GOOD Referrals: URIEL AMOR D.O. (PCP) Patient Instructions: Abdominal Pain Additional Instructions: You were seen in the emergency department today for abdominal pain. Your blood work was unremarkable. Your urinalysis did show urinary tract infection and this will be treated with an antibiotic. Please start and finish the antibiotic completely. Increase your fluids at home. Avoid any bladder irritants like caffeine, sugary beverages or alcohol. The CT scan of your abdomen did show a possible splenic infarct, see report that you were given. Treatment for this is symptomatic and pain control. You are being discharged home with some pain medication that you can take over the next couple of days, this medication may cause drowsiness so do not take any need to be alert, with alcohol or while driving a vehicle. Please follow-up with your doctor and have your ultrasound tomorrow. Please return to the emergency department if you develop worsening of your abdominal pain, intractable nausea or vomiting, high fevers refractory to treatment or any new or worsening concerns. Scripts Hydrocodone Bit/Acetaminophen (HYDROCODONE-APAP 5-325 ) 1 Tab Tablet 1 TAB PO PRN Q6HRS PRN for PAIN for 2 Days, #8 TAB 0 Refills Prov: HITESH TROTTER PHYTOCHEMISTRY PROFESSOR 09/21/21 Cephalexin (KEFLEX) 500 Mg Capsule 1 CAP PO BID for 7 Days, #14 CAP 0 Refills Prov: HITESH TROTTER PHYTOCHEMISTRY PROFESSOR 09/21/21 HITESH TROTTER APRN Sep 21, 2021 21:17
[2021-09-21 21:38] LABS: BASO # 0.1 x10^3/uL (0.0-0.2); BASO % 1 % (0-3); EOS # 0.1 x10^3/uL (0.0-0.7); EOS % 1 % (0-3); HEMATOCRIT 35.1 % (36.0-47.0); HEMOGLOBIN 11.5 g/dL (12.0-15.5); LYMPH # 1.5 x10^3/uL (1.0-4.8); LYMPH % 15 % (24-48); MEAN CORPUSCULAR HEMOGLOBIN 29 pg (25-35); MEAN CORPUSCULAR HGB CONC 33 g/dL (31-37); MEAN CORPUSCULAR VOLUME 88 fL (79-100); MONO # 0.7 x10^3/uL (0.0-1.1); MONO % 7 % (0-9); NEUT # 7.9 x10^3/uL (1.8-7.7); NEUT % 77 % (31-73); PLATELET COUNT 289 x10^3/uL (140-400); RED BLOOD COUNT 4.01 x10^6/uL (3.50-5.40); WHITE BLOOD COUNT 10.3 x10^3/uL (4.0-11.0)
[2021-09-21 21:49] LABS: CALCIUM 8.8 mg/dL (8.5-10.1); CREATININE 1.2 mg/dL (0.6-1.0); GFR 44.5; POTASSIUM 3.8 mmol/L (3.5-5.1)
[2021-09-21 21:55] LABS: ALBUMIN 2.6 g/dL (3.4-5.0); ALBUMIN/GLOBULIN RATIO 0.6 (1.0-1.7); TOTAL BILIRUBIN 0.3 mg/dL (0.2-1.0); TOTAL PROTEIN 6.9 g/dL (6.4-8.2)
[2021-09-21] MEDS ORDERED: ONDANSETRON PF 4 MG/2 ML VIAL. IVP ONE (22:00)
[2021-09-21] MEDS ORDERED: fentaNYL PF VIAL 100 MCG/2 ML VIAL IVP ONE ×2 (22:00→23:30)
[2021-09-21] MEDS ORDERED: IV NORMAL SALINE 1000ML BAG 1,000 ML IV SCH (22:00)
--- NOTE | 2021-09-21 22:34 | RAD ---
PQRS Compliance Statement: One or more of the following individualized dose reduction techniques were utilized for this examinat ion: 1. Automated exposure control 2. Adjustment of the mA and/or kV according to patient size 3. Use of iterative reconstruction technique CT ABDOMEN+PELVIS WO Clinical Indication: Reason: abd pain / Comparison: None. Technique: Helical CT imaging of the abdomen and pelvis is performed without IV or oral contrast. Findings: Evaluation of solid organs and bowel is limited without oral and IV contrast, decreasing sensitivity for detection of pathology. Minimal atelectasis or scarring in the lung bases. There is trace left pleural effusion. There may be negligible right pleural effusion. Calcific aortic valve stenosis. The cardiac size is normal. The liver, gallbladder, pancreas, adrenal glands, abdominal aorta caliber, and kidneys are normal. There is induration surrounding the upper lateral spleen. There is subtle geographic hypoattenuation in this portion of the spleen measuring approximately 8.9 x 4.5 x 5.2 cm. Stomach is unremarkable. There is no dilated small bowel. Appendix is not identified, no secondary si gns of appendicitis. There is scattered stool in the colon. No colon wall thickening is identified. N o abdominal adenopathy or free fluid. The urinary bladder is normal. Hysterectomy. There is trace pelvic free fluid. No acute bone abnormality. IMPRESSION: 1. There is a geographic wedge-shaped area of hypoattenuation in the lateral and superior spleen. Th ere is induration surrounding this portion of the spleen. Findings are suspicious for splenic infarct . 2. Trace pelvic free fluid. 3. Trace left pleural effusion. Electronically signed by: Julio César Pack MD (09/21/2021 10:31 PM) [facility]
[2021-09-21 22:50] LABS: BILIRUBIN,URINE NEGATIVE (NEG); CLARITY,URINE CLEAR; COLOR,URINE YELLOW; NITRITE,URINE NEGATIVE (NEG); PROTEIN,URINE NEGATIVE (NEG-TRACE); UROBILINOGEN,URINE 0.2 mg/dL (0.2 mg/dL)
[2021-09-21 22:59] LABS: BACTERIA,URINE 0 /HPF (0-FEW)
[2021-09-21] MEDS ORDERED: CEPH500C PO (23:19)
[2021-09-21] MEDS ORDERED: HYDR-2761 PO (23:19)
[2021-09-21] MEDS ORDERED: CEPHALEXIN 250 MG CAPSULE. PO ONE (23:30)
[2021-09-21 23:57] VITALS: BP 151/71
--- NOTE | 2021-09-22 04:30 | EKG ---
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
== END 2021-09-22 00:20 | disposition home or self-care (01) ==
LOC: ER 18:24
DX: R10.11 Right upper quadrant pain (principal); R10.13 Epigastric pain; R10.32 Left lower quadrant pain; K21.9 Gastro-esophageal reflux disease without esophagitis; I10 Essential (primary) hypertension; I25.2 Old myocardial infarction; G43.909 Migraine, unspecified, not intractable, without status migrainosus; Z88.4 Allergy status to anesthetic agent
CPT/HCPCS: 36415; 74176; 80053; 81001; 83690; 84484; 85025; 87086; 93005; 96361; 96374; 96375; 96376; 99285; J2405; J3010; J7030

== ENCOUNTER → 2021-10-27 | Outpatient (CLI) | payer MEDICARE ==
[2021-10-17 10:27] VITALS: BP 114/58
[~2021-10-27] MED LIST changes: +AMLO-187 PO; +ASPI-886 PO; +ATOR40TA59 PO; +CEPH500C PO; +HYDR-2761 PO; +WARF6TAB47 PO
[2021-10-27 11:03] LABS: BASO # 0.1 x10^3/uL (0.0-0.2); BASO % 1 % (0-3); EOS # 0.2 x10^3/uL (0.0-0.7); EOS % 3 % (0-3); HEMOGLOBIN 10.9 g/dL (12.0-15.5); LYMPH # 1.9 x10^3/uL (1.0-4.8); LYMPH % 26 % (24-48); MEAN CORPUSCULAR HEMOGLOBIN 29 pg (25-35); MEAN CORPUSCULAR HGB CONC 33 g/dL (31-37); MEAN CORPUSCULAR VOLUME 88 fL (79-100); MONO # 0.5 x10^3/uL (0.0-1.1); MONO % 7 % (0-9); NEUT # 4.7 x10^3/uL (1.8-7.7); NEUT % 63 % (31-73); PLATELET COUNT 413 x10^3/uL (140-400); RED BLOOD COUNT 3.74 x10^6/uL (3.50-5.40); WHITE BLOOD COUNT 7.5 x10^3/uL (4.0-11.0)
[2021-10-27 11:06] LABS: CALCIUM 8.3 mg/dL (8.5-10.1); CREATININE 1.1 mg/dL (0.6-1.0); GFR 49.2; POTASSIUM 4.4 mmol/L (3.5-5.1)
[2021-10-27 11:11] LABS: ALBUMIN 3.2 g/dL (3.4-5.0); ALBUMIN/GLOBULIN RATIO 0.8 (1.0-1.7); TOTAL BILIRUBIN 0.4 mg/dL (0.2-1.0); TOTAL PROTEIN 7.1 g/dL (6.4-8.2)
[2021-10-27 11:15] LABS: PROTHROMBIN TIME PATIENT 23.4 SEC (11.7-14.0)
== END ==
LOC: ONCLAB 10:25
PROVIDERS: ATTEND Internal Medicine Hematology & Oncology
DX: C50.111 Malignant neoplasm of central portion of right female breast (principal); D68.61 Antiphospholipid syndrome
CPT/HCPCS: 36415; 80053; 85025; 85610

== ENCOUNTER → 2021-11-27 | Outpatient (CLI) | payer MEDICARE ==
[2021-10-17 10:27] VITALS: BP 114/58
[~2021-11-27] MED LIST changes: +CEFD300C PO
== END ==
LOC: LAB 07:52
PROVIDERS: ATTEND Internal Medicine Cardiovascular Disease
DX: Z01.812 Encounter for preprocedural laboratory examination (principal); Z20.822 Contact with and (suspected) exposure to COVID-19; Q21.1 Atrial septal defect
CPT/HCPCS: U0003; U0005

== ENCOUNTER 2021-11-29 17:57 | Emergency (ER) | payer MEDICARE ==
[~2021-11-29] VITALS: Ht 157.5 cm; Wt 93.2 kg
[~2021-11-29 17:57] MED LIST changes: -BENZOCAINE ONE 20% MUCOSAL SPRAY. MM; -CEFD300C PO; -HYDROmorphone 2 MG/ML INJ. IVP PRN; -IV RINGERS,LACTATED 1000ML 1,000 ML IV SCH; -LIDOCAINE 2% TOPICAL JELLY 30GM TUBE. TP ONE; -LIDOCAINE 2% VISCOUS 15 ML SOLUTION. SWSW ONE; -MORPHINE SULFATE 2 MG/ML INJ. IVP PRN; -ONDANSETRON PF 4 MG/2 ML VIAL. IVP ONE; -PROCHLORPERAZINE 10 MG/2 ML VIAL. IVP PRN; -PROPOFOL 10 MG/ML (20ML) VIAL. IV ONE; -fentaNYL PF VIAL 100 MCG/2 ML VIAL IVP PRN
[2021-11-29 19:18] LABS: BASO # 0.1 x10^3/uL (0.0-0.2); BASO % 1 % (0-3); EOS # 0.1 x10^3/uL (0.0-0.7); EOS % 1 % (0-3); HEMATOCRIT 36.3 % (36.0-47.0); HEMOGLOBIN 11.9 g/dL (12.0-15.5); LYMPH # 1.1 x10^3/uL (1.0-4.8); LYMPH % 9 % (24-48); MEAN CORPUSCULAR HEMOGLOBIN 28 pg (25-35); MEAN CORPUSCULAR HGB CONC 33 g/dL (31-37); MEAN CORPUSCULAR VOLUME 86 fL (79-100); MONO # 0.6 x10^3/uL (0.0-1.1); MONO % 5 % (0-9); NEUT # 10.3 x10^3/uL (1.8-7.7); NEUT % 84 % (31-73); PLATELET COUNT 301 x10^3/uL (140-400); RED CELL DISTRIBUTION WIDTH 15.9 % (11.5-14.5); WHITE BLOOD COUNT 12.2 x10^3/uL (4.0-11.0)
[2021-11-29 19:20] LABS: BILIRUBIN,URINE NEGATIVE (NEG); CLARITY,URINE CLEAR; COLOR,URINE YELLOW; NITRITE,URINE NEGATIVE (NEG); PH,URINE 5.5 (<5.0-8.0); PROTEIN,URINE NEGATIVE (NEG-TRACE); UROBILINOGEN,URINE 0.2 mg/dL (0.2 mg/dL)
[2021-11-29 19:23] LABS: CALCIUM 9.3 mg/dL (8.5-10.1); CREATININE 1.3 mg/dL (0.6-1.0); GFR 40.6; MAGNESIUM 1.8 mg/dL (1.8-2.4); POTASSIUM 4.3 mmol/L (3.5-5.1)
[2021-11-29 19:25] LABS: PROTHROMBIN TIME PATIENT 12.9 SEC (11.7-14.0)
[2021-11-29 19:25] LABS: BACTERIA,URINE FEW /HPF (0-FEW); RBC,URINE 0 /HPF (0-2); WBC,URINE 20-40 /HPF (0-4)
[2021-11-29 19:26] LABS: HYALINE CASTS, URINE OCCASIONAL /HPF
--- NOTE | 2021-11-29 20:12 | RAD ---
Exam: Chest one view INDICATION: Decreased oxygen TECHNIQUE: Frontal view of chest Comparisons: None FINDINGS: The cardiomediastinal silhouette and pulmonary vessels are within normal limits. The lung and pleural spaces are clear. IMPRESSION: No acute cardiopulmonary process. Electronically signed by: David Mcmanus MD (11/29/2021 8:09 PM) [facility]
[2021-11-29] MEDS ORDERED: cefTRIAXone IV Push 1 GM VIAL. IVP ONE (20:45)
[2021-11-29] MEDS ORDERED: CEFD300C PO (20:54)
--- NOTE | 2021-11-29 20:54 | PHYS DOC ---
Past Medical History Past Medical History: Cancer, Diabetes-Type II, GERD, Hypertension, MA, Migraines, Seizure Additional Past Medical Histor: H. HERNIA, STRESS, BREAST CANCER, blood clot on spleen Past Surgical History: Hysterectomy Additional Past Surgical Histo: R MASTECTOMY Smoking Status: Never Smoker Alcohol Use: None Drug Use: None General Adult EDM: Chief Complaint: POST-OP PROBLEM HPI: HPI: Patient is a 71 year old female with history of movement disorder, T2DM, HTN, breast cancer who presents with increased upper extremity tremor after a BURKE earlier today. Patient was sedated with propofol and had what appeared to be an uncomplicated course for transesophageal echocardiogram. Was feeling well as she recovered. At approximately 5 PM noticed that her bilateral arm tremor is worse than usual. States that she is taking gabapentin 300 mg twice daily for this, but did not take her dose earlier today prior to her procedure. She does not take any other medications for the movement disorder. She has had an EEG, that has reportedly been nondiagnostic. She notices a tremor when she is resting in both of her arms, gets better with movement, or with distraction. She was concerned because, "whenever this starts acting up I know something is off." She believes she has a low-grade fever. Denies chest pain, sob, headache, confusion, abd pain, n/v, diarrhea. Denies dysuria, urgency. + frequency. MAR shows that she received lactated Ringer's, Zofran, and propofol. No other medications administered during her stay earlier. Review of Systems: Review of Systems: Constitutional: Reports low grade fever Eyes: Denies change in visual acuity. [] HENT: Denies nasal congestion or sore throat. [] Respiratory: Denies cough or shortness of breath. [] Cardiovascular: Denies chest pain or edema. [] GI: Denies abdominal pain, nausea, vomiting, bloody stools or diarrhea. [] : Denies dysuria. Reports frequency. [] Musculoskeletal: Denies back pain or joint pain. [] Integument: Denies rash. [] Neurologic: Reports tremor. Denies headache, focal weakness or sensory changes. [] Endocrine: Denies polyuria or polydipsia. [] Lymphatic: Denies swollen glands. [] Psychiatric: Denies depression or anxiety. [] Heart Score: C/O Chest Pain: No Current Medications: Current Medications Medications (Trade) Dose Ordered Sig/Evelyn Start Time Stop Time Status Last Admin Dose Admin Lorazepam (Ativan Inj) 0.5 mg 1X ONCE 11/29/21 18:45 11/29/21 18:46 DC 11/29/21 19:07 0.5 MG Allergies: Allergies: Allergies Coded Allergies Type Severity Reaction Last Updated Verified lidocaine Adverse Reaction Intermediate 11/29/21 No strawberry Adverse Reaction Intermediate hives 11/29/21 Yes Physical Exam: PE: Constitutional: Well developed, well nourished, no acute distress, non-toxic appearance. [] HENT: Normocephalic, atraumatic, bilateral external ears normal, oropharynx moist, no oral exudates, nose normal. [] Eyes: PERRLA, EOMI, conjunctiva normal, no discharge. [] Neck: Normal range of motion, no tenderness, supple, no stridor. [] Cardiovascular:Heart rate regular rhythm, no murmur [] Lungs & Thorax: Bilateral breath sounds clear to auscultation [] Abdomen: Bowel sounds normal, soft, no tenderness, no masses, no pulsatile masses. [] Skin: Warm, dry, no erythema, no rash. [] Back: No tenderness, no CVA tenderness. [] Extremities: No tenderness, no cyanosis, no clubbing, ROM intact, no edema. [] Neurologic: Alert, oriented to person, place, time. Face is symmetric. Speech is normal. Cranial nerves III-XII intact. Mild resting tremor in bilateral upper extremities, extinguishable with distraction or with movement. 5/5 strength in bilateral upper and lower extremities in all dermatomes. No dysmetria with [id number] or [id number]-[id number] testing. Psychologic: Affect normal, judgement normal, mood normal. [] Current Patient Data: Labs: Laboratory Tests Test 11/29/21 19:00 11/29/21 19:06 White Blood Count 12.2 x10^3/uL (4.0-11.0) H Red Blood Count 4.20 x10^6/uL (3.50-5.40) Hemoglobin 11.9 g/dL (12.0-15.5) L Hematocrit 36.3 % (36.0-47.0) Mean Corpuscular Volume 86 fL (79-100) Mean Corpuscular Hemoglobin 28 pg (25-35) Mean Corpuscular Hemoglobin Concent 33 g/dL (31-37) Red Cell Distribution Width 15.9 % (11.5-14.5) H Platelet Count 301 x10^3/uL (140-400) Neutrophils (%) (Auto) 84 % (31-73) H Lymphocytes (%) (Auto) 9 % (24-48) L Monocytes (%) (Auto) 5 % (0-9) Eosinophils (%) (Auto) 1 % (0-3) Basophils (%) (Auto) 1 % (0-3) Neutrophils # (Auto) 10.3 x10^3/uL (1.8-7.7) H Lymphocytes # (Auto) 1.1 x10^3/uL (1.0-4.8) Monocytes # (Auto) 0.6 x10^3/uL (0.0-1.1) Eosinophils # (Auto) 0.1 x10^3/uL (0.0-0.7) Basophils # (Auto) 0.1 x10^3/uL (0.0-0.2) Prothrombin Time 12.9 SEC (11.7-14.0) Prothrombin Time INR 1.0 (0.8-1.1) Sodium Level 139 mmol/L (136-145) Potassium Level 4.3 mmol/L (3.5-5.1) Chloride Level 103 mmol/L (98-107) Carbon Dioxide Level 27 mmol/L (21-32) Anion Gap 9 (6-14) Blood Urea Nitrogen 20 mg/dL (7-20) Creatinine 1.3 mg/dL (0.6-1.0) H Estimated GFR (Cockcroft-Gault) 40.6 Glucose Level 216 mg/dL (70-99) H Calcium Level 9.3 mg/dL (8.5-10.1) Magnesium Level 1.8 mg/dL (1.8-2.4) Urine Collection Type Unknown Urine Color Yellow Urine Clarity Clear Urine pH 5.5 (<5.0-8.0) Urine Specific Alpine 1.015 (1.000-1.030) Urine Protein Negative mg/dL (NEG-TRACE) Urine Glucose (UA) Negative mg/dL (NEG) Urine Ketones (Stick) Negative mg/dL (NEG) Urine Blood Negative (NEG) Urine Nitrite Negative (NEG) Urine Bilirubin Negative (NEG) Urine Urobilinogen Dipstick 0.2 mg/dL (0.2 mg/dL) Urine Leukocyte Esterase Large (NEG) Urine RBC 0 /HPF (0-2) Urine WBC 20-40 /HPF (0-4) Urine Squamous Epithelial Cells Mod /LPF Urine Bacteria Few /HPF (0-FEW) Urine Hyaline Casts Occasional /HPF Urine Mucus Marked /LPF Laboratory Tests 11/29/21 19:00 Laboratory Tests 11/29/21 19:00 Vital Signs: Vital Signs Date Time Temp Pulse Resp B/P (MAP) Pulse Ox O2 Delivery O2 Flow Rate FiO2 11/29/21 18:08 99.8 77 20 148/65 (92) 93 Room Air 99.8 EKG: EKG: [] Radiology/Procedures: Radiology/Procedures: [] Impression: [facility] [address] [place] [address] IMAGING REPORT Signed PATIENT: CARLOS ALBERTO BARTON JACCOUNT: [id number] : 1950 LOCATION: ER AGE: 71 SEX: F EXAM STATUS: REG ER ORD. PHYSICIAN: QUINN LUJAN MD REASON: spo2 90-92% PROCEDURE: CHEST AP ONLY Exam: Chest one view INDICATION: Decreased oxygen TECHNIQUE: Frontal view of chest Comparisons: None FINDINGS: The cardiomediastinal silhouette and pulmonary vessels are within normal limits. The lung and pleural spaces are clear. IMPRESSION: No acute cardiopulmonary process. Electronically signed by: David Evans MD (11/29/2021 8:09 PM) [facility] DICTATED and SIGNED BY: DAVID EVANS MD DATE: 11/29/[id number] 0 Course & Med Decision Making: Course & Med Decision Making Pertinent Labs and Imaging studies reviewed. (See chart for details) Patient is 71-year-old female with history of tremor/movement disorder who presents with worsening tremor after sedation for a transesophageal echocardiogram earlier today. MAR shows that she received lactated Ringer's, Zofran, propofol. On arrival she does have a low-grade fever 100.4, but is otherwise vitally stable (HR 70s, BP 140/60s). Nothing on MAR to suggest serotonin syndrome or risk for malignant hyperthermia. SpO2 was borderline low at 90-92% so CXR was taken and was unremarkable. No chest pain to suggest esophageal injury. Was tested for COVID twice in past two days, both negative. Abd exam benign. Labs only notable for stable CKD and mild leukocytosis. UA concerning for infection, sent for culture. With low grade fever and frequency will give dose of CTX here. Feel she can be discharged with Rx for Cefdinir. Return precautions discussed for chest pain, sob, abd/flank pain. Dragon Disclaimer: [employer] Disclaimer: This electronic medical record was generated, in whole or in part, using a voice recognition dictation system. Departure Departure Impression: Primary Impression: UTI (urinary tract infection) Additional Impression: Resting tremor Disposition: HOME / SELF CARE / HOMELESS Condition: STABLE Referrals: URIEL AMOR D.O. (PCP) Please schedule follow-up appointment with your PCP for next week. Patient Instructions: Urinary Tract Infection Additional Instructions: Your lab work was concerning for a urinary tract infection. I would like to treat you with an antibiotic called cefdinir. Please take the full course as prescribed. Otherwise please resume your previous medications. If you develop high fevers/shaking chills, chest pain, shortness of breath, abdominal pain, flank pain, persistent nausea/vomiting, or other new/concerning symptoms please return IMMEDIATELY to the emergency department for reevaluation. For your records, the sedative that you received earlier today is called PROPOFOL. Scripts Cefdinir (CEFDINIR) 300 Mg Capsule 1 CAP PO BID for 7 Days, #14 CAP 0 Refills Prov: QUINN LUJAN MD 11/29/21 QUINN LUJAN MD Nov 29, 2021 20:54
[2021-11-29 21:00] VITALS: BP 136/66
[2021-11-29] MEDS ORDERED: ACETAMINOPHEN 500 MG TABLET PO ONE (21:00)
== END 2021-11-29 21:10 | disposition home or self-care (01) ==
LOC: ER 17:57
DX: N39.0 Urinary tract infection, site not specified (principal); R25.1 Tremor, unspecified; E11.9 Type 2 diabetes mellitus without complications; K21.9 Gastro-esophageal reflux disease without esophagitis; I10 Essential (primary) hypertension; I25.2 Old myocardial infarction; G43.909 Migraine, unspecified, not intractable, without status migrainosus; Z79.01 Long term (current) use of anticoagulants; Z88.4 Allergy status to anesthetic agent; Z91.018 Allergy to other foods
CPT/HCPCS: 36415; 71045; 80048; 81001; 83735; 85025; 85610; 87086; 96374; 96375; 99285; J0696; J2060

== ENCOUNTER → 2021-11-29 | Day surgery (SDC) | payer MEDICARE ==
[~2021-11-29] VITALS: Ht 154.9 cm; Wt 99.0 kg
[~2021-11-29] MED LIST changes: +BENZOCAINE ONE 20% MUCOSAL SPRAY. MM; +HYDROmorphone 2 MG/ML INJ. IVP PRN; +IV RINGERS,LACTATED 1000ML 1,000 ML IV SCH; +LIDOCAINE 2% TOPICAL JELLY 30GM TUBE. TP ONE; +LIDOCAINE 2% VISCOUS 15 ML SOLUTION. SWSW ONE; +MORPHINE SULFATE 2 MG/ML INJ. IVP PRN; +ONDANSETRON PF 4 MG/2 ML VIAL. IVP ONE; +PROCHLORPERAZINE 10 MG/2 ML VIAL. IVP PRN; +PROPOFOL 10 MG/ML (20ML) VIAL. IV ONE; +fentaNYL PF VIAL 100 MCG/2 ML VIAL IVP PRN
[2021-11-29 10:43] VITALS: BP 163/74
--- NOTE | 2021-11-29 11:00 | EKG ---
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
[2021-11-29 11:10] LABS: CALCIUM 8.9 mg/dL (8.5-10.1); CREATININE 1.2 mg/dL (0.6-1.0); GFR 44.5; MAGNESIUM 1.9 mg/dL (1.8-2.4); POTASSIUM 4.2 mmol/L (3.5-5.1)
[2021-11-29 14:00] VITALS: BP 142/48
--- NOTE | 2021-11-29 17:49 | CARD ---
MR#: [id number] Date of Study: 11/29/2021 Ordering Physician: RISHI HERRERA, Referring Physician: RISHI HERRERA, Tech: Ledy Herbert [facility] APPROVED REPORT EXAM: Transesophageal echocardiogram with color flow Doppler. INDICATION Possible PFO Echo Enhancing Agent Indication: Rule Out Septal Defect Agent/Amount Used: Agitated Saline 10mL RISK FACTORS Hypertension Hyperlipidemia Diabetes Reason For Test : Possible PFO PROCEDURE After obtaining informed consent, patient underwent transesophageal echo in the PACU. Type of Sedation : General Anesthesia Sedation was administered by Christ Chance CRNA. Sedation was achieved with Propofol 300 intravenously. Transesophageal probe was inserted and advanced into esophagus by Rishi Herrera MD. The BURKE was performed without complications. Throughout the procedure, the blood pressure, pulse oximetry, cardiac rhythm, and rate were monitored . The patient tolerated the procedure without adverse effects. Recovery from general anesthesia was une ventful and vital signs were stable. LEFT VENTRICLE The left ventricle is normal size. There is borderline to mild concentric left ventricular hypertroph y. The left ventricular systolic function is normal and the ejection fraction is within normal range. The Ejection Fraction is 55-60%. There is normal LV segmental wall motion. No left ventricle thrombu s noted on this study. There is no ventricular septal defect visualized. RIGHT VENTRICLE The right ventricle is normal size. There is normal right ventricular wall thickness. The right ventr icular systolic function is normal. ATRIA The left atrium size is normal. The right atrium size is normal. The interatrial septum is intact wit h no evidence for an atrial septal defect or patent foramen ovale as noted on 2-D or Doppler imaging. Negative bubble study. AORTIC VALVE The aortic valve is normal in structure and function. Doppler and Color Flow revealed no significant aortic regurgitation. There is no significant aortic valvular stenosis. MITRAL VALVE The mitral valve is normal in structure and function. There is no evidence of mitral valve prolapse. There is no mitral valve stenosis. Doppler and Color-flow revealed trace to mild mitral regurgitation . TRICUSPID VALVE The tricuspid valve is normal in structure and function. Doppler and Color Flow revealed trace to mil d tricuspid regurgitation. There is no tricuspid valve stenosis. PULMONIC VALVE The pulmonic valve is not well visualized. Critical Notification Critical Value: No <Conclusion> The left ventricle is normal size. The left ventricular systolic function is normal and the ejection fraction is within normal range. The Ejection Fraction is 55-60%. There is borderline to mild concentric left ventricular hypertrophy. There is no ventricular septal defect visualized. The interatrial septum is intact with no evidence for an atrial septal defect or patent foramen ovale as noted on 2-D or Doppler imaging. Negative bubble study. Doppler and Color Flow revealed no significant aortic regurgitation. There is no significant aortic valvular stenosis. Doppler and Color-flow revealed trace to mild mitral regurgitation. Doppler and Color Flow revealed trace to mild tricuspid regurgitation. Signed by : Rishi Herrera MD Electronically Approved : 11/29/2021 17:48:25
== END | disposition home or self-care (01) ==
LOC: SURG 10:15
PROVIDERS: ATTEND Internal Medicine Cardiovascular Disease
DX: Q21.1 Atrial septal defect (principal); I25.10 Atherosclerotic heart disease of native coronary artery without angina pectoris; I10 Essential (primary) hypertension; E78.00 Pure hypercholesterolemia, unspecified; J45.909 Unspecified asthma, uncomplicated; E11.9 Type 2 diabetes mellitus without complications; E66.9 Obesity, unspecified; K21.9 Gastro-esophageal reflux disease without esophagitis; M19.90 Unspecified osteoarthritis, unspecified site; F41.9 Anxiety disorder, unspecified; F32.9 Major depressive disorder, single episode, unspecified; Z86.73 Personal history of transient ischemic attack (TIA), and cerebral infarction without residual deficits; Z90.49 Acquired absence of other specified parts of digestive tract; Z90.710 Acquired absence of both cervix and uterus; Z98.890 Other specified postprocedural states; Z79.82 Long term (current) use of aspirin; Z79.84 Long term (current) use of oral hypoglycemic drugs; Z79.899 Other long term (current) drug therapy; Z88.8 Allergy status to other drugs, medicaments and biological substances
CPT/HCPCS: 36415; 80048; 83735; 93005; 93312; 93325; J2405; J2704

== ENCOUNTER → 2022-01-17 | Outpatient (CLI) | payer MEDICARE ==
[~2022-01-17] MED LIST changes: +CEFD300C PO
--- NOTE | 2022-01-17 15:11 | RAD ---
Study: XR EXAM OF ANKLE_RIGHT 3VIEWS Indication: Right ankle pain. Comparison: None. Findings: Mild degenerative spurring at the tips of the medial more so than lateral malleoli as well as at the periphery of the tibial plafond. Subchondral cyst at the medial talar dome. Ankle joint space height is maintained. No fracture or traumatic malalignment. Mild talonavicular arthrosis with degenerative spurring dorsally. Plantar calcaneal spur. Chronic osseous proliferation at the medial aspect of the talus. Impression: 1. Mild ankle arthrosis. Subchondral cyst at the medial talar dome measuring approximately 6 mm trans verse. 2. Mild talonavicular joint arthrosis. Plantar calcaneal spur. Electronically signed by: JOSE DE JESUS VERAS MD (01/17/2022 3:08 PM) [id number]
--- NOTE | 2022-01-17 16:10 | RAD ---
EXAM: Right lower extremity venous Doppler sonogram. HISTORY: Pain and swelling. TECHNIQUE: Choi scale and color Doppler sonographic evaluation of the right lower extremity veins wit h spectral waveform analysis was performed. FINDINGS: There is normal color flow, normal compressibility and there are normal spectral waveforms in the common femoral, superficial femoral, popliteal, posterior tibial and greater saphenous veins. IMPRESSION: No Doppler evidence of lower extremity deep venous thrombosis. Electronically signed by: Pamela Bledsoe MD (01/17/2022 4:07 PM) [facility]
== END ==
LOC: US 12:50
DX: M19.071 Primary osteoarthritis, right ankle and foot (principal); M77.31 Calcaneal spur, right foot; M85.671 Other cyst of bone, right ankle and foot; M79.671 Pain in right foot
CPT/HCPCS: 73610; 93971

== ENCOUNTER → 2022-01-25 | Outpatient (CLI) | payer MEDICARE ==
[2022-01-25 10:29] LABS: BASO # 0.1 x10^3/uL (0.0-0.2); BASO % 1 % (0-3); EOS # 0.2 x10^3/uL (0.0-0.7); EOS % 4 % (0-3); HEMATOCRIT 37.3 % (36.0-47.0); HEMOGLOBIN 11.9 g/dL (12.0-15.5); LYMPH # 2.1 x10^3/uL (1.0-4.8); LYMPH % 37 % (24-48); MEAN CORPUSCULAR HEMOGLOBIN 27 pg (25-35); MEAN CORPUSCULAR HGB CONC 32 g/dL (31-37); MEAN CORPUSCULAR VOLUME 85 fL (79-100); MONO # 0.5 x10^3/uL (0.0-1.1); MONO % 9 % (0-9); NEUT # 2.7 x10^3/uL (1.8-7.7); NEUT % 48 % (31-73); PLATELET COUNT 304 x10^3/uL (140-400); RED BLOOD COUNT 4.41 x10^6/uL (3.50-5.40); WHITE BLOOD COUNT 5.5 x10^3/uL (4.0-11.0)
[2022-01-25 10:48] LABS: CALCIUM 9.5 mg/dL (8.5-10.1); CREATININE 1.2 mg/dL (0.6-1.0); GFR 44.5; POTASSIUM 4.6 mmol/L (3.5-5.1)
[2022-01-25 10:54] LABS: ALBUMIN 3.3 g/dL (3.4-5.0); ALBUMIN/GLOBULIN RATIO 0.8 (1.0-1.7); TOTAL BILIRUBIN 0.2 mg/dL (0.2-1.0); TOTAL PROTEIN 7.4 g/dL (6.4-8.2)
== END ==
LOC: ONCLAB 10:20
PROVIDERS: ATTEND Internal Medicine Hematology & Oncology
DX: C50.111 Malignant neoplasm of central portion of right female breast (principal); D68.9 Coagulation defect, unspecified
CPT/HCPCS: 36415; 80053; 85025; 85610